=== PATIENT | male | born 1960 | race Caucasian/White ===

== ENCOUNTER 2017-05-24 01:27 | Emergency (ER) | payer MEDICAID ==
[~2017-05-24] VITALS: Ht 177.8 cm; Wt 108.9 kg
--- NOTE | 2017-05-24 01:47 | NUR ---
PT AMBULATORY TO ER BED 9. PT BIB FAMILY, PT C/O INFECTION ON GROIN AND LEGS AND STATES HE IS HERE FOR ANTIBIOTIS. PT PLACED IN GOWN AND ON COOK 3 PASTRY. VSS/RESP EVEN UNLABORED/NAD NOTED/SKIN WARM AND DRY/DENIES N-V-D/ AFEBRILE/AOX4. AWAITING MD ESPINOZA.
--- NOTE | 2017-05-24 01:53 | NUR ---
AT BEDSIDE FOR EVAL.
--- NOTE | 2017-05-24 02:20 | NUR ---
20G IV X 3 ATTEMPTS, HANDED BLOOD CULT X 2 AND BLOOD OVER TO LAB AT BESIDE. IV UNSUCCESSFUL, PT REFUSED ANOTHER ATTEMPT. MADE AWARE.
[2017-05-24] MEDS ORDERED: IV NS 0.9% 1,000 ML BAG IV ONE (02:30)
[2017-05-24] MEDS ORDERED: VANCOMYCIN 1 GM in IV D5W 250 ML IV ONE (02:30)
[2017-05-24] MEDS ORDERED: PIPERACILLIN /TAZOBACTAM 3.375 G in IV D5W 50 ML IV ONE (02:30)
[2017-05-24 02:33] LABS: BASOPHILS # (AUTO) 0.1 /CMM (0.0-0.2); BASOPHILS % (AUTO) 0.2 % (0.0-2.0); HEMATOCRIT 35 % (39-51); HEMOGLOBIN 11.4 g/dL (13.5-17.5); LYMPHOCYTES # (AUTO) 0.9 /CMM (0.8-4.8); LYMPHOCYTES % (AUTO) 2.9 % (20.0-44.0); MEAN CORPUSCULAR HGB CONC 33 g/dl (31.0-36.0); MEAN CORPUSCULAR VOLUME 74 fL (80-96); MONOCYTES # (AUTO) 0.2 /CMM (0.1-1.30); MONOCYTES % (AUTO) 0.5 % (2.0-12.0); NEUTROPHILS # (AUTO) 30.1 /CMM (1.8-8.9); NEUTROPHILS % (AUTO) 96.4 % (43.0-81.0); PLATELET COUNT (AUTO) 408 /CMM (150-450); RDW COEFFICIENT OF VARIATION 21.7 (11.5-15.0); RED BLOOD CELL COUNT(AUTO) 4.74 MIL/uL (4.5-6.0)
[2017-05-24 02:34] LABS: WHITE BLOOD COUNT (AUTO) 31.2 K/uL (4.3-11.0)
--- NOTE | 2017-05-24 02:35 | NUR ---
MD AT BEDSIDE SPEAKING WITH PATIENT.
[2017-05-24] MEDS ORDERED: SULFAMETH/TRIMETH 800/160 MG 1 UDTAB TABLET PO ONE ×2 (02:38→03:00)
[2017-05-24] MEDS ORDERED: CEPHALEXIN MONOHYDRATE 500 MG CAPSULE PO ONE ×2 (02:38→03:00)
[2017-05-24 02:39] LABS: CALCIUM, SERUM 8.2 mg/dL (8.5-10.1); CREATININE 0.8 mg/dL (0.6-1.3); POTASSIUM 3.7 mmol/L (3.5-5.1)
[2017-05-24 02:44] LABS: INR 1.13 (0.87-1.13)
--- NOTE | 2017-05-24 02:49 | NUR ---
Patient discharged to home in stable condition. Written and verbal after care instructions given. Patient verbalizes understanding of instruction. Patient ambulatory with a steady gait.
[2017-05-24 02:50] VITALS: BP 129/81
[2017-05-24 04:07] LABS: BAND % (MANUAL) 9 % (0.0-5.0); LYMPHOCYTES % (MANUAL) 3 % (16-48); NEUTROPHILS % (MANUAL) 88 (42-76)
== END 2017-05-24 02:52 | disposition home or self-care (01) ==
LOC: ER 01:28
DX: I87.2 Venous insufficiency (chronic) (peripheral) (principal); R65.10 Systemic inflammatory response syndrome (SIRS) of non-infectious origin without acute organ dysfunction; L03.115 Cellulitis of right lower limb; L03.116 Cellulitis of left lower limb; I10 Essential (primary) hypertension; F17.210 Nicotine dependence, cigarettes, uncomplicated
CPT/HCPCS: 36415; 80048-TC; 83605-TC; 85025-TC; 85652-TC; 85730-TC; 86140-TC; 87040-TC; A4606; J2543; J7060; Z7610